=== PATIENT | male | born 1935 | race Caucasian/White ===

== ENCOUNTER 2021-10-03 15:04 | Outpatient (CLI) | payer MEDICARE, SELFPAY ==
--- NOTE | ~2021-10-03 | XR_ITS ---
EXAMINATION: XR chest 2V DATE: 10/03/2021 15:40 INDICATION: Pruritus ani TECHNIQUE: frontal and lateral views of the chest were obtained. COMPARISON: None FINDINGS: Minimal streaky atelectasis at the bilateral costophrenic angles. Approximately 1 cm nodular opacity with sharply defined margins projecting along the inferior margin of the anterior sixth rib without e vident correlate on the lateral projection most likely representing a nipple shadow. No other airspac e opacities, pulmonary edema, pleural effusion or pneumothorax. The cardiomediastinal silhouette is n ormal. Surgical clips at the left axilla and anterior left chest wall. Moderate to severe thoracic sp ondylosis. IMPRESSION: 1. Minimal streaky bibasilar atelectasis. No other acute cardiopulmonary disease. 2. Indeterminate 1 cm nodular opacity projecting over the right lung base most likely a nipple shadow . Consider follow-up radiograph with nipple markers for confirmation. Reviewed, dictated and finalized at location [facility]. [facility] IMPRESSION: 1. Minimal streaky bibasilar atelectasis. No other acute cardiopulmonary diseas e. 2. Indeterminate 1 cm nodular opacity projecting over the right lung base most likely a nipple shadow. Consider follow-up radiograph with nipple markers for c onfirmation.
[2021-10-03 15:31] LABS: Basophils Absolute Auto 0.04 K/mm3 (0.00-0.10); Basophils Percent Auto 0.4 % (0.0-1.0); Eosinophils Absolute Auto 0.27 K/mm3 (0.02-0.50); Eosinophils Percent Auto 2.9 % (1.0-6.0); Hematocrit 40.9 % (37.0-46.0); Hemoglobin 13.6 g/dL (12.4-15.3); Immature Granulocyte Absolute 0.05 K/mm3 (0.00-0.00); Immature Granulocyte Percent A 0.5 % (0.0-0.0); Lymphocytes Absolute Auto 2.06 K/mm3 (1.10-4.50); Lymphocytes Percent Auto 22.3 % (18.0-42.0); Mean Corpuscular HGB Conc 33.3 g/dL (32.0-36.0); Mean Corpuscular Hemoglobin 32.9 pg (27.0-31.0); Mean Corpuscular Volume 98.8 fL (78.0-102.0); Mean Platelet Volume 10.6 fl (8.7-11.0); Monocytes Absolute Auto 0.72 K/mm3 (0.10-0.90); Monocytes Percent Auto 7.8 % (2.0-11.0); Neutrophils Absolute Auto 6.1 K/mm3 (1.7-7.2); Neutrophils Percent Auto 66.1 % (50.0-70.0); Platelet Count Result 209 K/mm3 (150-420); Red Blood Count 4.14 M/mm3 (4.70-6.10); Red Cell Distribution Width 13.4 % (11.6-14.4); White Blood Count 9.3 K/mm3 (4.8-10.8)
[2021-10-03 16:08] LABS: Alanine Aminotransferase 17 U/L (16-63); Albumin Level 3.8 g/dL (3.4-5.0); Alkaline Phosphatase 55 U/L (46-116); Anion Gap 9 mmol/L (8-16); Aspartate Amino Transferase 17 U/L (15-37); Bilirubin,Total 0.4 mg/dL (0.00-1.00); Blood Urea Nitrogen 18 mg/dL (7-18); CRP 0.8 mg/dL (0.0-0.9); Calcium 9.1 mg/dL (8.5-10.1); Carbon Dioxide 29 mmol/L (21-32); Chloride 101 mmol/L (98-108); Estimated Glomerular Filt Rate > 60; Free T4 Free Thyroxine 1.06 ng/dL (0.76-1.46); Glucose 115 mg/dL (70-99); Osmolality Calculated 290 mOsm/kg (285-295); Sodium 139 mmol/L (136-145); Thyroid Stimulating Hormone 0.66 uIU/mL (0.36-3.74); Total Protein 7.2 g/dL (6.4-8.2)
[2021-10-03 16:31] LABS: Erythrocyte Sedimentation Rate 24 mm/hr (0-20)
== END 2021-10-03 15:05 | disposition home or self-care (01) ==
PROVIDERS: Specialist; PCP Family Medicine; Visit Provider Orthopaedic Surgery Hand Surgery
DX: L29.9 Pruritus, unspecified (principal)
CPT/HCPCS: 36415; 71046; 80053; 84439; 84443; 85025; 85652; 86140

== ENCOUNTER 2021-10-12 10:34 | Outpatient (CLI) | payer MEDICARE, SELFPAY ==
--- NOTE | ~2021-10-12 | XR_ITS ---
XR chest 2V DATE: 10/12/2021 11:02 INDICATION: Indeterminant nodular density projecting over right lung base on October 03, 2021 PA ches t TECHNIQUE: PA and lateral views with right nipple marker COMPARISON: October 03, 2021 PA and lateral chest FINDINGS: Normal heart size. No hilar or mediastinal enlargement. Previously reported subtle nodular density overlying right lung base corresponds to the nipple marker . No pulmonary infiltrate or consolidation or pulmonary mass lesion is evident. Alignment surgical clip s overlie left breast and left axillary area. Degenerative spurring of the thoracic spine. IMPRESSION: No active cardiac pulmonary disease Previously reported nodular density overlying right lung base corresponds to nipple shadow Reviewed, dictated and finalized at location A. [facility] IMPRESSION: No active cardiac pulmonary disease Previously reported nodular density overlying right lung base corresponds to ni pple shadow
== END 2021-10-12 10:35 | disposition home or self-care (01) ==
LOC: CHSLAB 10:37
PROVIDERS: PCP Family Medicine; Visit Provider Family Medicine
DX: R93.89 Abnormal findings on diagnostic imaging of other specified body structures (principal)
CPT/HCPCS: 71046

== ENCOUNTER 2021-11-28 11:41 | Outpatient (CLI) | payer MEDICARE, SELFPAY | END 2021-11-28 11:42 | disposition home or self-care (01) | LOC: CHSOUTPT 11:43 | PROVIDERS: PCP Family Medicine; Visit Provider Specialist | DX: C44.519 Basal cell carcinoma of skin of other part of trunk (principal) | CPT/HCPCS: 88305 ==